=== PATIENT | male | born 1965 | race Two or more races ===

== ENCOUNTER 2024-04-12 10:30 | Outpatient (RCR) | payer MEDICAID, SELFPAY ==
--- NOTE | 2024-03-29 10:20 | PTNOTE_ITS ---
PT Outpatient Daily Note OP Daily Note Outpatient Physical Therapy Treatment Date: 03/29/24 Visit Reasons: Low back pain Subjective: Pt's back is the same, however, heat really helps him perform exercise with ease. Objective: Please see flow chart for list of ther ex performed Assessment: difficulty with figure 4 stretch due to hip restriction and pain with the s tretch. Pt was able to complete instructed reps Plan: Continue with PT Length of Time (minutes) of Treatment: 30 Minutes Procedure Charges Therapeutic Exercise 30 minutes: Yes
--- NOTE | 2024-03-31 09:15 | PT.ODAYNRPT ---
PT Outpatient Daily Note OP Daily Note Outpatient Physical Therapy Treatment Date: 03/31/24 Visit Reasons: Low back pain Subjective: Pt's back is stiff. Pt wants heat with exercises. Pt notice less right LE pain since starting PT. Objective: Please see flow chart for list of ther ex performed Assessment: able to tolerate standing extension; reports less radicular pain post PT session. Plan: Continue with PT Length of Time (minutes) of Treatment: 30 Minutes Procedure Charges Therapeutic Exercise 30 minutes: Yes
--- NOTE | 2024-04-06 11:05 | PT.ODAYNRPT ---
PT Outpatient Daily Note OP Daily Note Outpatient Physical Therapy Treatment Date: 04/06/24 Visit Reasons: Low back pain Subjective: No new concerns. Objective: Please see flow sheet for ther ex list. Assessment: Pt demonstrates forward stooped posture during lateral stepping exercise, verbal cues to correct. Plan: Continue with poC. Length of Time (minutes) of Treatment: 30 Minutes Procedure Charges Therapeutic Exercise 30 minutes: Yes
--- NOTE | 2024-04-08 09:40 | PT.ODAYNRPT ---
PT Outpatient Daily Note OP Daily Note Outpatient Physical Therapy Treatment Date: 04/08/24 Visit Reasons: Low back pain Subjective: Pt reports he continues to have pain in his back and c/o leg pain. Objective: Please see flow sheet for ther ex list. Assessment: Pt demonstrates poor activity tolerance, requires seated rest breaks during ther ex due to aggravating symptoms. Plan: Assess for note. Length of Time (minutes) of Treatment: 30 Minutes Procedure Charges Therapeutic Exercise 30 minutes: Yes
--- NOTE | 2024-04-12 12:44 | PT.ODS1RPT ---
PT OP Progress/Discharge Note Date of Service: 04/12/24 Progress Note/DC Note Progress Note/Discharge Note: DC Note Patient Information Visit Reasons: Low back pain Medical Diagnosis: M54.50 Treatment Dx #1: Back Pain Service Discharge Date: 04/12/24 Status Subjective: Pt's back pain is the same and has not change much with physical therapy. Pt still has limitation with sitting, standing, chores, self care, and performing recreational activities Objective: L/S AROM: all motions are 50 % towards end range with pain Hip PROM: all motions are WFL except IR Hip MMTs: grossly 3/5 Special Test (+) slump (+) SLR Assessment: Pt continues to have back pain and limitation leading to difficulty with ADLs. Pt will no longer benefit from physical therapy due to minimal progression towards goals. Pt was instructed on HEP last session and educated to continue exercises to maintain overall mobility. Pt performed all exercises safely, thank you for your referrals. Plan: D/C home with HEP and follow up with MD UNGER Procedure Charges Therapeutic Exercise 30 minutes: Yes
== END 2024-04-24 23:59 | disposition home or self-care (01) ==
LOC: CPTX 10:30
PROVIDERS: PCP Nurse Practitioner Family; Referring Provider Nurse Practitioner Family; Visit Provider Nurse Practitioner Family
DX: M51.370 Other intervertebral disc degeneration, lumbosacral region with discogenic back pain only (principal); R26.2 Difficulty in walking, not elsewhere classified; R26.89 Other abnormalities of gait and mobility
CPT/HCPCS: 97110

== ENCOUNTER → 2024-07-19 | Outpatient (CLI) | payer MEDICAID, SELFPAY ==
--- NOTE | 2024-07-19 07:00 | XR_ITS ---
Examination: MRI lumbar spine without contrast Date and time of exam: July 19, 2024 0748 hrs. Indications: Low back pain radiating to the legs paresthesias in the legs months Technique: Multiple MRI axial and sagittal sections lumbar spine. Sagittal T2-weighted images, TR 3500, TE 118 T1 weighted transverse sections, TR 688 T8.5, T2-weighted sagittal sections T1 weighted sagittal sections TR 621, TE 30 T2 axial sections, TR 4, 190, TE 84. Findings: Adequate alignment lumbar vertebral bodies on the lateral view No lumbar fracture Diffuse lumbar disc desiccation No spondylolisthesis L5-S1 5 mm central lumbar disc bulge extending to the right foramen with severe right L5 ganglionic compression L4-L5 5 mm central lumbar disc bulge extending to the left foraminal region with mild left L4 foramen ganglionic compression L3-L4 no disc protrusion L2-L3 3 mm central lumbar disc bulge L1-2 no disc protrusion Impression: L5-S1 5 mm central right foraminal disc bulges producing severe right L5 ganglionic compression L4-L5 5 mm central left foraminal disc bulge producing mild left L4 ganglionic compression
== END | disposition home or self-care (01) ==
PROVIDERS: Referring Provider Physician Assistant; Visit Provider Physician Assistant
DX: G95.20 Unspecified cord compression (principal); M51.369 Other intervertebral disc degeneration, lumbar region without mention of lumbar back pain or lower extremity pain; M51.379 Other intervertebral disc degeneration, lumbosacral region without mention of lumbar back pain or lower extremity pain
CPT/HCPCS: 72148

== ENCOUNTER → 2024-09-03 | Outpatient (CLI) | payer MEDICAID, SELFPAY ==
--- NOTE | 2024-09-03 12:30 | XR_ITS ---
Examination: Abdomen sonogram, complete Date and time of exam: September 03, 2024 1254 hrs. Indications: Right upper abdominal cramping beginning 2 months ago. Technique: Multiple real-time grayscale transabdominal sonographic images of the abdomen have been obtained. Findings: Negative for gallstones Gallbladder wall 0.4 cm no edema Common bile duct 0.2 cm Pancreatic head 2.7 cm Aorta not enlarged Liver 15.9 cm fatty infiltration no focal liver lesions Normal hepatopedal portal venous flow Patent IVC Right kidney 9.8 x 5.0 x 4.7 cm renal cortex 1.8 cm Upper pole 13 mm cyst Left kidney 10.6 x 4.9 x 4.5 cm cortex 1.6 cm No hydronephrosis Spleen 11.2 cm Impression: Normal gallbladder Fatty liver
== END | disposition home or self-care (01) ==
LOC: CDIM 12:19
PROVIDERS: PCP Nurse Practitioner Family; Referring Provider Nurse Practitioner Family; Visit Provider Nurse Practitioner Family
DX: K76.0 Fatty (change of) liver, not elsewhere classified (principal)
CPT/HCPCS: 76700

== ENCOUNTER → 2024-09-09 | Outpatient (CLI) | payer MEDICAID, SELFPAY ==
--- NOTE | 2024-09-09 11:14 | XR_ITS ---
Examination: Lumbar spine 7 views Technique one AP lateral coned lateral lower lumbar spine standing lateral flexion standing lateral extension, [facility] ROSI 7 views Exam date and time: September 09, 2024 1145 hours INDICATIONS: Low back pain 7 years getting worse. FINDINGS: Diffuse moderate facet arthropathy No lumbar fracture Moderate lumbar spondylosis Diffuse [id number] lumbar degenerative disc disease most prominent at L5-S1 IMPRESSION: Diffuse [id number] lumbar degenerative disc disease most prominent at L5-S1 Adequate range of motion between flexion and extension
== END | disposition home or self-care (01) ==
LOC: CDIM 11:07
PROVIDERS: PCP Nurse Practitioner Family; Referring Provider Physician Assistant; Visit Provider Physician Assistant
DX: M51.379 Other intervertebral disc degeneration, lumbosacral region without mention of lumbar back pain or lower extremity pain (principal); M51.369 Other intervertebral disc degeneration, lumbar region without mention of lumbar back pain or lower extremity pain
CPT/HCPCS: 72114

== ENCOUNTER → 2024-11-25 | Outpatient (CLI) | payer MEDICAID, SELFPAY ==
--- NOTE | 2024-11-25 | XR_ITS ---
Examination: PA lateral chest 2 views TECHNIQUE: Upright PA lateral chest 2 views Date and time: November 25, 2024 0803 hours INDICATIONS: Sleep apnea diagnosis 2000. FINDINGS: Normal heart size. Lungs are clear. Moderate osteopenia IMPRESSION: No active disease.
== END | disposition home or self-care (01) ==
LOC: CDIM 07:37
PROVIDERS: PCP Nurse Practitioner Family; Referring Provider Internal Medicine Critical Care Medicine; Visit Provider Internal Medicine Critical Care Medicine
DX: G47.30 Sleep apnea, unspecified (principal)
CPT/HCPCS: 71046